=== PATIENT | female | born 1945 | race American Indian/Alaskan Native ===

== ENCOUNTER 2018-01-25 08:44 | Day surgery (SDC) | payer MEDICARE ==
[2018-01-10 10:28] VITALS: BMI 23.9
[~2018-01-25 08:44] MED LIST: Lactated Ringer's 500 ML IV ONE; Phenylephrine 2.5% Opht Soln OS SCH; Tropicamide 1% Opht SOLUTION OS SCH
[2018-01-25] MEDS ORDERED: Lactated Ringer's 500 ML IV ONE (09:20)
[2018-01-25] MEDS ORDERED: Carbachol 0.01% IO ONE (09:30)
[2018-01-25] MEDS ORDERED: Povidone Iodine Ophthalmic 5% Soln ONE (09:30)
[2018-01-25] MEDS ORDERED: Chondroitin/Hyaluronate Opth Syringe KIT (0.55 ml-0.5 ml) IO ONE (09:31)
[2018-01-25] MEDS ORDERED: Tobramycin/Dexamethasone OPHT OINT ONE (09:31)
[2018-01-25] MEDS ORDERED: Hyaluronidase Human, Recombi 150 U/ML VIAL ONE (09:31)
[2018-01-25] MEDS ORDERED: Tetracaine 0.5% Ophth (OR ONLY) ONE (09:31)
[2018-01-25] MEDS ORDERED: Propofol 10 mg/ml Inj (20 ML) ONE (10:26)
[2018-01-25 11:24] VITALS: RESP 15; O2SAT 100
[2018-01-25 12:08] VITALS: BP 126/56; PULSE 61; TEMP 97.8
--- NOTE | 2018-01-25 21:39 | OP ---
PROCEDURE DATE: 01/25/2018 PREOPERATIVE DIAGNOSIS: Mature nuclear cataract, left eye. POSTOPERATIVE DIAGNOSIS: Mature nuclear cataract, left eye. OPERATIVE PROCEDURE: Cataract extraction with lens implant, left eye. SURGEON: Jordan Rosales MD. WILDLIFE TECHNICIAN: Retrobulbar block. COMPLICATIONS: None. ESTIMATED BLOOD LOSS: 0. DESCRIPTION OF PROCEDURE: The patient was brought to the operating room and properly identified. Anesthesia staff administered intravenous sedation and retrobulbar block was given to the surgical eye. The patient was then prepped and draped in the usual sterile fashion. Attention was turned to the surgical eye. A lid speculum was placed into interpalpebral fissure. Sitting temporally, two paracentesis incisions were made. The anterior chamber was filled with viscoelastic and a triplanar clear corneal incision was made. Using a cystitome, anterior capsular leaflet was created. Utrata forceps were used to create a continuous curvilinear capsulorrhexis. Balanced salt solution on a cannula was used to hydrodissect and hydrodelineate the lens. The lens was then phacoemulsified with no complications. Automated irrigation and aspiration was used to remove the cortex. Viscoelastic was used to deepen the anterior chamber. The lens was placed in the capsular bag. Automated irrigation and aspiration was used to remove the viscoelastic. The anterior chamber was filled with Miochol. The wounds were hydrated with balanced salt solution. There was noted to be no leak at the end of the case and the lens was well positioned. The lid speculum was removed. The eye was given antibiotics and steroids and covered with a patch and shield. The patient was returned to the recovery room in stable condition. Jordan Rosales MD
== END 2018-01-25 12:06 | disposition home or self-care (01) ==
LOC: C.SDS 08:44
PROVIDERS: ATTEND Ophthalmology
DX: H25.12 Age-related nuclear cataract, left eye (principal)
CPT/HCPCS: 66984; J2704; J3470; J7120; V2632

== ENCOUNTER 2018-02-22 08:17 | Day surgery (SDC) | payer MEDICARE ==
[2018-01-10 10:28] VITALS: BMI 23.9
[~2018-02-22 08:17] MED LIST changes: +Carbachol 0.01% IO ONE; +Chondroitin/Hyaluronate Opth Syringe KIT (0.55 ml-0.5 ml) IO ONE; +Hyaluronidase Human, Recombi 150 U/ML VIAL ONE; +Lidocaine 2% MPF (5 ml) Inj ONE; +Phenylephrine 2.5% Opht Soln OD SCH; -Phenylephrine 2.5% Opht Soln OS SCH; +Povidone Iodine Ophthalmic 5% Soln ONE; +Tetracaine 0.5% Ophth (OR ONLY) ONE; +Tobramycin/Dexamethasone OPHT OINT ONE; +Tropicamide 1% Opht SOLUTION OD SCH; -Tropicamide 1% Opht SOLUTION OS SCH
[2018-02-22 09:33] VITALS: O2SAT 100
[2018-02-22] MEDS ORDERED: Propofol 10 mg/ml Inj (20 ML) ONE (10:37)
[2018-02-22] MEDS ORDERED: Midazolam 2 MG/2 ML VIAL ONE (10:57)
[2018-02-22 12:46] VITALS: BP 127/82; PULSE 64; RESP 15; TEMP 97.9
--- NOTE | 2018-02-22 22:15 | OP ---
PROCEDURE DATE: 02/22/2018 PREOPERATIVE DIAGNOSIS: Nuclear mature cataract, right eye. POSTOPERATIVE DIAGNOSIS: Nuclear mature cataract, right eye. OPERATIVE PROCEDURE: Cataract extraction with lens implant, right eye. SURGEON: Jordan Rosales MD TYPE OF ANESTHESIA: Retrobulbar block. COMPLICATIONS: None. ESTIMATED BLOOD LOSS: Zero. PROCEDURE: The patient was brought to the operating room and properly identified. Anesthesia staff administered intravenous sedation and retrobulbar block was given to the surgical eye. The patient was then prepped and draped in the usual sterile fashion. Attention was turned to the surgical eye. A lid speculum was placed into interpalpebral fissure. Sitting temporally, two paracentesis incisions were made. The anterior chamber was filled with viscoelastic and a triplanar clear corneal incision was made. Using a cystitome, anterior capsular leaflet was created. Utrata forceps were used to create a continuous curvilinear capsulorrhexis. Balanced salt solution on a cannula was used to hydrodissect and hydrodelineate the lens. The lens was then phacoemulsified with no complications. Automated irrigation and aspiration was used to remove the cortex. Viscoelastic was used to deepen the anterior chamber. The lens was placed in the capsular bag. Automated irrigation and aspiration was used to remove the viscoelastic. The anterior chamber was filled with Miochol. The wounds were hydrated with balanced salt solution. There was noted to be no leak at the end of the case and the lens was well positioned. The lid speculum was removed. The eye was given antibiotics and steroids and covered with a patch and shield. The patient was returned to the recovery room in stable condition. Jordan Rosales MD
== END 2018-02-22 12:30 | disposition home or self-care (01) ==
LOC: C.SDS 08:17
PROVIDERS: ATTEND Ophthalmology
DX: H25.13 Age-related nuclear cataract, bilateral (principal)
CPT/HCPCS: 66984; J2250; J2704; J3470; V2632